=== PATIENT | female | born 1965 | race Caucasian/White ===

== ENCOUNTER 2017-02-27 22:45 | Emergency (ER) | payer OTHER ==
[2017-02-28 02:07] VITALS: BP 137/77; PULSE 70; TEMP 98.2; BMI 21.2
[2017-02-28] MEDS ORDERED: OXYCODONE/APAP 5/325MG COMBO TABLET PO ONE (02:27)
--- NOTE | 2017-02-28 02:27 | PDOC ---
History of Present Illness - General History Source: Patient <Ender Mathis - Last Filed: 02/28/17 02:29> - History of Present Illness Initial Comments: 02/28/17 02:32 The patient is a 51 year old female, with a significant past medical history of left shoulder surgery on 02/27/17, who presents to the emergency department with pain to her left shoulder s/p left shoulder surgery at [facility]. The patient states she has prescriptions for pain medication sent to her pharmacy, however, was unable to get to the pharmacy to mushroom picker the medication before they closed. The patient presents in a left shoulder immobilizer. She denies chest pain, shortness of breath, headache and dizziness. She denies fever, chills, nausea, vomit, diarrhea and constipation. She denies dysuria, frequency, urgency and hematuria. Allergies: NKDA PCP - Dr. Vanesa Del Toro <Rosanna De La Fuente - Last Filed: 02/28/17 02:33> - General Chief Complaint: RX Refill Stated Complaint: NEEDS REFILL Time Seen by Provider: 02/28/17 02:25 Past History - Past Medical History Suicide Attempt (Hx): No - Psycho/Social/Smoking Cessation Hx Anxiety: No Suicidal Ideation: No Smoking Status: Yes Smoking History: Never smoked Have you smoked in the past 12 months: No Number of Cigarettes Smoked Daily: 0 Information on smoking cessation initiated: No Hx Alcohol Use: No Drug/Substance Use Hx: No <Sylvia Mathisan - Last Filed: 02/28/17 02:29> <Rosanna De La Fuente - Last Filed: 02/28/17 02:33> - Past Medical History Allergies/Adverse Reactions: Allergies Allergy/AdvReac Type Severity Reaction Status Date / Time No Known Allergies Allergy Verified 02/28/17 02:04 Review of Systems - Review of Systems Able to Perform ROS?: Yes Comments:: 02/28/17 02:32 CONSTITUTIONAL: Absent: fever, no chills, no fatigue EYES: Absent: visual changes ENT: Absent: ear pain, no sore throat CARDIOVASCULAR: Absent: chest pain, no palpitations RESPIRATORY: Absent: cough, no SOB GI: Absent: abdominal pain, no nausea, no vomiting, no constipation, no diarrhea GENITOURINARY: Absent: dysuria, no frequency, no hematuria MUSCULOSKELETAL: (+) left shoulder pain. Absent: back pain SKIN: Absent: rash NEURO: Absent: headache <Rosanna De La Fuente - Last Filed: 02/28/17 02:33> *Physical Exam - Vital Signs Last Vital Signs Temp Pulse Resp BP Pulse Ox 98.2 F 70 14 137/77 98 02/28/17 02:04 02/28/17 02:04 02/28/17 02:04 02/28/17 02:04 02/28/17 02:04 <Ender Mathis - Last Filed: 02/28/17 02:29> - Vital Signs Last Vital Signs Temp Pulse Resp BP Pulse Ox 98.2 F 70 14 137/77 98 02/28/17 02:04 02/28/17 02:04 02/28/17 02:04 02/28/17 02:04 02/28/17 02:04 - Physical Exam Comments: 02/28/17 02:32 GENERAL: Well-appearing, well-nourished. No apparent distress. HEENT: Normocephalic, atraumatic. PERRL, EOM intact. CARDIOVASCULAR: Normal S1, S2. Regular rate and rhythm. PULMONARY: Clear to auscultation bilaterally. ABDOMEN: Soft, non-distended, non-tender. EXTREMITIES: (+) left shoulder presents in immobilizer. No gross deformities. SKIN: Warm, dry. No rash NEUROLOGICAL: No focal neurological deficits. <Rosanna De La Fuente - Last Filed: 02/28/17 02:33> ED Treatment Course - Medications Given in the ED: ED Medications Discontinued Medications Generic Name Dose Route Start Last Admin Trade Name Martha PRN Reason Stop Dose Admin Oxycodone/Acetaminophen 2 combo 02/28/17 02:27 02/28/17 02:31 Percocet 5/325 - PO 02/28/17 02:28 2 combo ONCE ONE Administration <Rosanna De La Fuente - Last Filed: 02/28/17 02:33> Medical Decision Making - Medical Decision Making 02/28/17 02:30 Dr. Mathis: The scribe's documentation has been prepared under my direction and personally reviewed by me in its entirery. I confirm that the note above accurately reflects all work, treatment, procedures, and medical decision making performed by me. <Ender Mathis - Last Filed: 02/28/17 02:29> *DC/Admit/Observation/Transfer - Discharge Dispostion Admit: No <Ender Mathis - Last Filed: 02/28/17 02:29> - Attestations Scribe Attestion: 02/28/17 02:33 Documentation prepared by Rosanna De La Fuente, acting as medical case manager for Ender Mathis MD <Rosanna De La Fuente - Last Filed: 02/28/17 02:33> Diagnosis at time of Disposition: Post-op pain - Discharge Dispostion Disposition: HOME Condition at time of disposition: Stable - Referrals Referrals: Vanesa Del Toro MD [Primary Care Provider] - - Patient Instructions Printed Discharge Instructions: DI for Shoulder Pain
== END 2017-02-28 03:13 | disposition home or self-care (01) ==
LOC: JER 22:45
DX: G89.18 Other acute postprocedural pain (principal); Z76.0 Encounter for issue of repeat prescription
CPT/HCPCS: 99281-25